=== PATIENT | male | born 1955 | race Caucasian/White ===

== ENCOUNTER 2024-04-06 12:37 | Emergency (ER) | payer MEDICARE, OTHER ==
[~2024-04-06] VITALS: Ht 170.2 cm; Wt 82.6 kg
[~2024-04-06 12:37] MED LIST: AMLO-212 PO; ASPI-1169 PO; ATOR40TA PO; CLOP75TA15 PO
[2024-04-06] MEDS ORDERED: AMOX-427 PO (12:51)
[2024-04-06 12:52] VITALS: BP 110/72; TEMP 98.4
[2024-04-06] MEDS ORDERED: TDAP [DIPH/PERTUSSIS/TET] 0.5 ML VIAL IM ONE (13:00)
[2024-04-06 13:04] VITALS: O2SAT 99
[2024-04-06] MEDS: TDAP [DIPH/PERTUSSIS/TET] 0.5 ML VIAL IM ONE (13:04)
== END 2024-04-06 13:04 | disposition home or self-care (01) ==
LOC: ER 12:37
DX: S71.152A Open bite, left thigh, initial encounter (principal); Z79.02 Long term (current) use of antithrombotics/antiplatelets; Z79.82 Long term (current) use of aspirin; Z95.5 Presence of coronary angioplasty implant and graft; W54.0XXA Bitten by dog, initial encounter; Y93.89 Activity, other specified; Y92.89 Other specified places as the place of occurrence of the external cause; Y99.8 Other external cause status
CPT/HCPCS: 90715

== ENCOUNTER 2024-04-17 14:11 | Emergency (ER) | payer MEDICARE, BC ==
[~2024-04-17] VITALS: Ht 170.2 cm; Wt 83.9 kg
[~2024-04-17 14:11] MED LIST changes: +AMOX-427 PO
[2024-04-17 14:51] VITALS: BP 115/70; TEMP 97.8; O2SAT 98
== END 2024-04-17 15:52 | disposition home or self-care (01) ==
LOC: ER 14:13
DX: S71.131A Puncture wound without foreign body, right thigh, initial encounter (principal); S70.11XA Contusion of right thigh, initial encounter; I25.10 Atherosclerotic heart disease of native coronary artery without angina pectoris; Z79.02 Long term (current) use of antithrombotics/antiplatelets; Z79.82 Long term (current) use of aspirin; Z95.5 Presence of coronary angioplasty implant and graft; W54.0XXA Bitten by dog, initial encounter; Y93.89 Activity, other specified; Y92.89 Other specified places as the place of occurrence of the external cause; Y99.8 Other external cause status